=== PATIENT | female | born 1965 | race Caucasian/White ===

== ENCOUNTER → 2020-11-23 | Outpatient (CLI) | payer BC ==
[~2020-11-23] MED LIST: COUMADIN3 MG PO; PANTOPRAZOLE SO40 MG PO; PEPCID20 MG PO
== END ==
LOC: MAMMO 09:47
PROVIDERS: ATTEND Internal Medicine
DX: Z12.31 Encounter for screening mammogram for malignant neoplasm of breast (principal)
CPT/HCPCS: 77067

== ENCOUNTER 2021-01-26 17:58 | Emergency (ER) | payer BC ==
[~2021-01-26] VITALS: Ht 167.6 cm; Wt 93.9 kg
[2021-01-26] MEDS ORDERED: DECADRON4 M1 PO (19:59)
== END 2021-01-26 21:05 | disposition home or self-care (01) ==
LOC: ER 18:46
DX: U07.1 COVID-19 (principal); K21.9 Gastro-esophageal reflux disease without esophagitis; Z86.711 Personal history of pulmonary embolism; J12.82 Pneumonia due to coronavirus disease 2019
CPT/HCPCS: 71045; 99283

== ENCOUNTER → 2022-12-18 | Outpatient (CLI) | payer BC, OTHER ==
[~2022-12-18] MED LIST changes: +BIOTIN-VITAMIN1 EACH PO; +DECADRON4 M1 PO; +MULTI-VITAMIN1 EACH PO
== END ==
LOC: LAB 05:00 → EDSTATUS 07:00
PROVIDERS: ATTEND Internal Medicine Gastroenterology
DX: Z01.818 Encounter for other preprocedural examination (principal); K30 Functional dyspepsia; R13.10 Dysphagia, unspecified; Z78.9 Other specified health status; Z68.35 Body mass index [BMI] 35.0-35.9, adult; Z86.010 Personal history of colon polyps; Z53.8 Procedure and treatment not carried out for other reasons
CPT/HCPCS: 93005

== ENCOUNTER → 2023-02-18 | Day surgery (SDC) | payer OTHER ==
[~2023-02-18] MED LIST changes: +FENTANYL CITRATE/PF 100MCG/2 ML INJ ONE; +LACTATED RINGER'S 1,000 ML ONE; +LIDOCAINE HCL 2% LOCAL INJ 5 ML SDV VIAL INJ ONE; +ONDANSETRON HCL INJ 2MG/ML 2ML 2 MG/ML VIAL ONE; +POVIDONE IODINE 0.05% 0.05 % ML PO ONE; +PROPOFOL IV EMULSION 10 MG/ML 20 ML VIAL ONE
[2023-02-18 07:45] VITALS: BP 141/91
== END | disposition home or self-care (01) ==
LOC: OR 05:42
PROVIDERS: ATTEND Internal Medicine Gastroenterology
DX: Z09 Encounter for follow-up examination after completed treatment for conditions other than malignant neoplasm (principal); D12.3 Benign neoplasm of transverse colon; D12.5 Benign neoplasm of sigmoid colon; K44.9 Diaphragmatic hernia without obstruction or gangrene; K22.2 Esophageal obstruction; K57.30 Diverticulosis of large intestine without perforation or abscess without bleeding; K30 Functional dyspepsia; K21.9 Gastro-esophageal reflux disease without esophagitis; Z68.35 Body mass index [BMI] 35.0-35.9, adult; Z78.9 Other specified health status
CPT/HCPCS: 43249; 45380; 45385; 88305; J2001; J2405; J2704; J3010; J7121; 43239; 45378

== ENCOUNTER 2024-11-12 16:00 | Outpatient (RCR) | payer OTHER ==
[~2024-11-12 16:00] MED LIST changes: -FENTANYL CITRATE/PF 100MCG/2 ML INJ ONE; -LACTATED RINGER'S 1,000 ML ONE; -LIDOCAINE HCL 2% LOCAL INJ 5 ML SDV VIAL INJ ONE; -ONDANSETRON HCL INJ 2MG/ML 2ML 2 MG/ML VIAL ONE; -POVIDONE IODINE 0.05% 0.05 % ML PO ONE; -PROPOFOL IV EMULSION 10 MG/ML 20 ML VIAL ONE
== END 2024-11-27 ==
LOC: PT 16:00
PROVIDERS: ATTEND Family Medicine
DX: M25.552 Pain in left hip (principal); M25.512 Pain in left shoulder